=== PATIENT | female | born 1985 | race Caucasian/White ===

== ENCOUNTER 2017-09-28 16:23 | Emergency (ER) | payer OTHER ==
[2017-09-28 16:41] VITALS: BP 130/78
[2017-09-28] MEDS ORDERED: metroNIDAZOLE TAB* 250 MG PO ONE (17:09)
--- NOTE | 2017-09-28 17:09 | UC ---
Complaint Female HPI - HPI Summary HPI Summary: c/o vaginal itching and discharge for the past week, states she shaved then 3 days later she had a lot of vaginal itching and some vaginal discharge. She has intercourse with in monogamous relationship, denies chills, fever, flank pain or dysuria. - History Of Current Complaint Chief Complaint: UCGU Stated Complaint: PERSONAL Time Seen by Provider: 09/28/17 16:43 Hx Obtained From: Patient Hx Last Menstrual Period: 08/27/17 ?: No Onset/Duration: Sudden Onset, Lasting Days Timing: Constant Severity Initially: Mild Severity Currently: Moderate Pain Intensity: 0 Character: Burning - itching Aggravating Factor(s): [place], Urination Associated Signs And Symptoms: Positive: Vaginal Discharge - Risk Factors Ectopic Risk Factor: Negative Ovarian Torsion Risk Factor: Negative - Allergies/Home Medications Allergies/Adverse Reactions: Allergies Allergy/AdvReac Type Severity Reaction Status Date / Time Penicillins Allergy Airway Verified 09/28/17 16:42 Obstruction PMH/Surg Hx/FS Hx/Imm Hx Previously Healthy: Yes - Surgical History Surgical History: Yes Surgery Procedure, Year, and Place: Tonsillectomy, 1993, [facility]. Tubal Ligation, 2006, [facility] - Family History Known Family History: Positive: Other - lung cancer Negative: Diabetes - Social History Alcohol Use: None Substance Use Type: None Smoking Status (MU): Heavy Every Day Tobacco Smoker Type: Cigarettes Amount Used/How Often: 1 pack daily Length of Time of Smoking/Using Tobacco: since age 11 Have You Smoked in the Last Year: Yes Household Exposure Type: Cigarettes Review of Systems Genitourinary: Vaginal/Penile Burning All Other Systems Reviewed And Are Negative: Yes Physical Exam Triage Information Reviewed: Yes Appearance: Well-Appearing, No Pain Distress, Obese Vital Signs: Initial Vital Signs Temp 98.3 F 09/28/17 16:33 Pulse 112 09/28/17 16:33 Resp 18 09/28/17 16:33 BP 130/78 09/28/17 16:33 Pulse Ox 99 09/28/17 16:33 Eyes: Positive: Conjunctiva Clear ENT: Positive: Hearing grossly normal Neck: Positive: Supple Respiratory Exam: Normal Cardiovascular: Positive: Pulses Normal, Brisk Capillary Refill Abdomen Description: Positive: Nontender Bowel Sounds: Positive: Present Pelvic Exam: Positive: Bimanual Exam Normal, No Cerv. Motion Tender, No Masses, Cervicitis - punctiform redness in cervix, Discharge, Other - erythema on labia and perineum Musculoskeletal: Positive: ROM Intact Complaint Female Dx - Course Course Of Treatment: vaginitis, start flagyl as prescribed and miconazole cream vaginally. Will await results of tests, abstain from sexual alcohol and intercourse for a week and f/u pcp in 1-2 w - Differential Dx/Diagnosis Provider Diagnoses: vaginitis Discharge - Sign-Out/Discharge Documenting (check all that apply): Discharge/Admit/Transfer - Discharge Plan Condition: Stable Disposition: HOME Prescriptions: Clotrimazole 1% VAGINAL CREAM* [Gyne-Lotrimin 1% VAGINAL CREAM*] 1 applic VAGINAL BEDTIME 7 Days #1 tube metroNIDAZOLE [Metronidazole] 500 mg PO BID 7 Days #14 tablet Patient Education Materials: Vaginitis (ED), Metronidazole (By mouth), Miconazole (Into the vagina) Referrals: America Guevara PA [Primary Care Provider] - - Billing Disposition and Condition Condition: STABLE Disposition: Home
--- NOTE | 2017-09-30 08:07 | UC ---
- Progress Note Progress Note: please call the pt. with her lab results + trichomonas , she is on Flagyl she may take 4 tabs for Flagy (2 grams )x 1 dose and not take the rest of the medication please have her partner be seen for treatment as well Discharge - Sign-Out/Discharge Documenting (check all that apply): Discharge/Admit/Transfer - Discharge Plan Condition: Stable Disposition: HOME Prescriptions: Clotrimazole 1% VAGINAL CREAM* [Gyne-Lotrimin 1% VAGINAL CREAM*] 1 applic VAGINAL BEDTIME 7 Days #1 tube metroNIDAZOLE [Metronidazole] 500 mg PO BID 7 Days #14 tablet Patient Education Materials: Miconazole (Into the vagina), Metronidazole (By mouth), Vaginitis (ED) Referrals: America Guevara PA [Primary Care Provider] - - Billing Disposition and Condition Condition: STABLE Disposition: Home
== END 2017-09-28 17:16 | disposition home or self-care (01) ==
LOC: UCCORT 16:23
DX: A59.01 Trichomonal vulvovaginitis (principal); Z88.0 Allergy status to penicillin; F17.210 Nicotine dependence, cigarettes, uncomplicated
CPT/HCPCS: 87480; 87491; 87510; 87591; 87660; 99212; A9270-GY; G0463

== ENCOUNTER 2019-05-25 14:27 | Emergency (ER) | payer OTHER ==
[2019-05-25 15:02] VITALS: BP 122/86
--- NOTE | 2019-05-25 15:24 | UC ---
Abdominal Pain Female HPI - HPI Summary HPI Summary: 33 yo female with the acute onset of right flank pain about 2 hours ago nausea dry heaves no vomting no fever hurts to twist or bend onset while at rest hx of kidney stones no relief with naprosyn - History of Current Complaint Chief Complaint: UCBackPain Stated Complaint: LOWER BACK/HIP PAIN Time Seen by Provider: 05/25/19 15:03 Hx Obtained From: Patient Hx Last Menstrual Period: 04/22/2019 - tubal also Onset/Duration: Sudden Onset, Lasting Hours Timing: Constant Severity Initially: Severe Severity Currently: Severe Pain Intensity: 10 Pain Scale Used: 0-10 Numeric Location: Other - right flank Aggravating Factor(s): Movement Alleviating Factor(s): Nothing Associated Signs and Symptoms: Positive: Nausea. Negative: Diaphoresis, Fever, Cough, Chest Pain, Dizzy, Back Pain, Constipation, Blood in Stool, Urinary Symptoms, Decreased Appetite, Vaginal Bleeding, Vaginal Discharge, Vomiting, Diarrhea Allergies/Adverse Reactions: Allergies Allergy/AdvReac Type Severity Reaction Status Date / Time Penicillins Allergy Airway Verified 05/25/19 14:58 Obstruction PMH/Surg Hx/FS Hx/Imm Hx Previously Healthy: Yes GI/ History: Kidney Stones - Surgical History Surgical History: Yes Surgery Procedure, Year, and Place: Tonsillectomy, 1993, [facility]. Tubal Ligation, 2006, [facility] - Family History Known Family History: Positive: Other - lung cancer Negative: Diabetes - Social History Alcohol Use: None Substance Use Type: None Smoking Status (MU): Heavy Every Day Tobacco Smoker Type: Cigarettes Amount Used/How Often: 1/2 pack daily Length of Time of Smoking/Using Tobacco: since age 11 Have You Smoked in the Last Year: Yes Household Exposure Type: Cigarettes Review of Systems All Other Systems Reviewed And Are Negative: Yes Constitutional: Positive: Negative Skin: Positive: Negative Eyes: Positive: Negative ENT: Positive: Negative Respiratory: Positive: Negative Cardiovascular: Positive: Negative Gastrointestinal: Positive: Nausea, Other - right flank pain Genitourinary: Positive: Negative Motor: Positive: Negative Neurovascular: Positive: Negative Musculoskeletal: Positive: Negative Neurological/Mental Status: Positive: Negative Psychological: Positive: Negative Physical Exam Triage Information Reviewed: Yes Appearance: Well-Appearing, No Pain Distress, Well-Nourished Vital Signs: Initial Vital Signs Temp 97.8 F 05/25/19 14:58 Pulse 105 02/18/20 14:58 Resp 17 05/25/19 14:58 BP 122/86 05/25/19 14:58 Pulse Ox 99 05/25/19 14:58 Vital Signs Reviewed: Yes Eyes: Positive: Conjunctiva Clear ENT: Positive: Hearing grossly normal. Negative: Nasal congestion, Nasal drainage, Trismus, Muffled voice, Hoarse voice, Uvula midline Dental Exam: Normal Neck: Positive: Supple, Nontender, No Lymphadenopathy Respiratory: Positive: Lungs clear, Normal breath sounds, No respiratory distress Cardiovascular: Positive: RRR, No Murmur Abdomen Description: Positive: Nontender, No Organomegaly, Soft, CVA Tenderness (R). Negative: CVA Tenderness (L) Bowel Sounds: Positive: Present Musculoskeletal: Positive: ROM Intact, No Edema Neurological: Positive: Alert Psychological Exam: Normal Skin Exam: Normal Diagnostics - Laboratory Lab Results: UA neg - Radiology No standard instances Radiology Interpretation Completed By: Radiologist Summary of Radiographic Findings: CT ABD/PELVIS- negative for stones Abd Pain Female Course/Dx - Differential Dx/Diagnosis Provider Diagnosis: Right flank pain Discharge ED - Sign-Out/Discharge Documenting (check all that apply): Patient Departure All imaging exams completed and their final reports reviewed: Yes - Discharge Plan Condition: Stable Disposition: HOME Prescriptions: Cyclobenzaprine (NF) [Cyclobenzaprine 5 MG (NF)] 5 mg PO TID PRN #21 tab PRN Reason: Spasms Meloxicam [Mobic] 7.5 mg PO BID #30 tablet Patient Education Materials: Flank Pain (ED) Referrals: [facility] [place] [facility] [place]] - If Needed Additional Instructions: TO ER FOR NEW OR WORSENING SYMPTOMS recheck in 4-7 days if not better - Billing Disposition and Condition Condition: STABLE Disposition: Home
== END 2019-05-25 16:05 | disposition home or self-care (01) ==
LOC: UCCORT 14:27
DX: R10.9 Unspecified abdominal pain (principal); R11.0 Nausea; F17.210 Nicotine dependence, cigarettes, uncomplicated; Z88.0 Allergy status to penicillin
CPT/HCPCS: 74176; 81003; 99212; G0463